=== PATIENT | female | born 2000 | race Caucasian/White ===

== ENCOUNTER 2020-11-03 19:20 | Emergency (ER) | payer OTHER | END 2020-11-03 19:27 | disposition E | LOC: ER1 19:20 | DX: I46.9 Cardiac arrest, cause unspecified (principal); V49.40XA Driver injured in collision with unspecified motor vehicles in traffic accident, initial encounter; Y92.410 Unspecified street and highway as the place of occurrence of the external cause | CPT/HCPCS: 31500; 92950; 94760; 99285 ==